=== PATIENT | male | born 1965 | race Caucasian/White ===

== ENCOUNTER 2016-10-07 11:26 | Emergency (ER) | payer SELFPAY ==
[~2016-10-07] VITALS: Wt 101.0 kg
[2016-10-07] MEDS ORDERED: ONDANSETRON (ODT) 4 MG TAB ODT STA (12:42)
[2016-10-07] MEDS ORDERED: HYDROCODONE/APAP (10/325) TAB PO ONE (13:00)
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
[2016-10-07] MEDS ORDERED: NAPR-260 PO (14:00)
[2016-10-07] MEDS ORDERED: HYDR-902 PO (14:00)
== END 2016-10-07 14:42 | disposition home or self-care (01) ==
LOC: FTE 11:26
DX: S49.91XA Unspecified injury of right shoulder and upper arm, initial encounter (principal); S79.911A Unspecified injury of right hip, initial encounter; S19.9XXA Unspecified injury of neck, initial encounter; S09.90XA Unspecified injury of head, initial encounter; S29.001A Unspecified injury of muscle and tendon of front wall of thorax, initial encounter; R51 Headache; R07.9 Chest pain, unspecified; X58.XXXA Exposure to other specified factors, initial encounter; Y92.9 Unspecified place or not applicable
CPT/HCPCS: 70450; 71020; 72125; 73510